=== PATIENT | female | born 1980 | race Caucasian/White ===

== ENCOUNTER 2017-08-03 17:49 | Emergency (ER) | payer BC ==
--- NOTE | 2017-08-03 18:20 | EDM.PDOC ---
ED HPI GENERAL MEDICAL PROBLEM - General Chief Complaint: General Stated Complaint: back injury Time Seen by Provider: 08/03/17 18:14 Source of Information: Reports: Patient History Limitations: Reports: No Limitations - History of Present Illness INITIAL COMMENTS - FREE TEXT/NARRATIVE: 37 yr female presents with low back pain on the right side. States she was holding a hockey bag at the arena and her back gave out and this pain started. States she thought it was her kidneys, but this pain is low back pain. States better with sitting and worse with standing. States hysterectomy in 2015 and no chance for any x-ray, also had appendectomy. Pain is better with sitting straight up right. States pain is a 6 with sitting and 9 with standing. Onset: Today Onset Date: 08/03/17 Location: Reports: Back Associated Symptoms: Reports: Other (leg pain) - Related Data Allergies Allergy/AdvReac Type Severity Reaction Status Date / Time No Known Allergies Allergy Verified 08/03/17 18:05 Past Medical History HEENT History: Reports: None Cardiovascular History: Reports: None Respiratory History: Reports: None Gastrointestinal History: Reports: None Genitourinary History: Reports: None Other OB/BYN History: parity: 3, gravity: 3, vaginal deliveries Neurological History: Reports: None Endocrine/Metabolic History: Reports: None Oncologic (Cancer) History: Reports: None - Past Surgical History Head Surgeries/Procedures: Reports: None Other Musculoskeletal Surgeries/Procedures:: no further complaints of musculoskeletal concerns, no RA, no scoliosis or LLD, no known bone density concerns ED ROS GENERAL - Review of Systems Review Of Systems: See Below Constitutional: Reports: No Symptoms HEENT: Reports: No Symptoms Respiratory: Reports: No Symptoms Cardiovascular: Reports: No Symptoms Musculoskeletal: Reports: Back Pain, Leg Pain Skin: Reports: No Symptoms Neurological: Reports: No Symptoms ED EXAM, GENERAL - Physical Exam Exam: See Below Exam Limited By: No Limitations General Appearance: Alert, No Apparent Distress Nose: Normal Inspection Throat/Mouth: Normal Inspection Head: Atraumatic Neck: Normal Inspection Respiratory/Chest: No Respiratory Distress Back Exam: Muscle Spasm, Paraspinal Tenderness Extremities: Normal Inspection, Normal Range of Motion Neurological: Alert, Oriented, Normal Cognition Psychiatric: Normal Affect Skin Exam: Warm, Dry, Normal Color Course - Vital Signs Last Recorded V/S: Last Vital Signs Temp 98.7 F 08/03/17 18:20 Pulse 144 H 08/03/17 18:20 Resp 12 08/03/17 18:20 BP 144/91 H 08/03/17 18:20 Pulse Ox 99 08/03/17 18:20 - Orders/Labs/Meds Orders: Active Orders 24 hr Category Date Time Status Lumbar Spine 2 or 3V [CR] Stat Exams 08/03/17 18:19 Taken - Re-Assessments/Exams Free Text/Narrative Re-Assessment/Exam: 08/03/17 19:10 Review of x-ray, noted no acute fracture, no lesions noted. Radiology to read and results will be reviewed. Recommend ice or heat to area, may alternated Ibuprofen and Tylenol for pain. Flexeril 10 mg PO tid as needed for muscle spasm. Flat on back tonight with use of ice/heat or position of comfort. If pain persists, should be off work tomorrow and let back rest. Pt to contact provider if need refill on Flexeril or if pain worsens or unrelieved with Ibuprofen. Pt discharged to self care. Departure - Departure Time of Disposition: 19:00 Disposition: Home, Self-Care 01 Condition: Good Clinical Impression: Paraspinal muscle spasm - Discharge Information Instructions: Back Pain, Adult, [id number] Referrals: PCP,None [Primary Care Provider] - Forms: ED Department Discharge Additional Instructions: Take alternate tylenol (650mg) and ibproufen (800mg) every four hours as needed for pain. Stretch back as tolerated. Use flexeril 1 tablet 10mg up to 3 times a day as needed for pain. Alternate ice and heat for 15 minutes every 3 to 4 hours. - My Orders Last 24 Hours: My Active Orders 08/03/17 18:19 Lumbar Spine 2 or 3V [CR] Stat - Assessment/Plan Last 24 Hours: My Active Orders 08/03/17 18:19 Lumbar Spine 2 or 3V [CR] Stat
[2017-08-03] MEDS ORDERED: Cyclobenzaprine 10 MG Tab ONE (18:45)
--- NOTE | 2017-08-04 11:03 | CR ---
DATE OF SERVICE: 08/03/17 CLINICAL DATA: back pain LUMBAR SPINE: There is mild left convexity rotoscoliosis of the mid and lower lumbar spine. The vertebral bodies are of average height. No acute fracture or dislocation. There are small disc margin spurs at multiple levels. The disc spaces are relatively intact. No acute abnormalities. If the patient's symptoms persist, a MRI scan should be considered. [id number] MTDD
== END 2017-08-03 19:02 | disposition home or self-care (01) ==
LOC: LB.ED 17:49
DX: M62.830 Muscle spasm of back (principal)
CPT/HCPCS: 72100; 99283; A9270

== ENCOUNTER 2023-09-30 16:26 | Emergency (ER) | payer BC ==
[2023-09-30] MEDS ORDERED: Ketorolac 30 MG/ML SDV IVPUSH ONE (16:32)
[2023-09-30 16:44] LABS: BASOPHILS ABSOLUTE AUTO 0.02 K/uL (0.02-0.10); BASOPHILS PERCENT AUTO 0.3 % (0.0-0.5); EOSINOPHILS ABSOLUTE AUTO 0.15 K/uL (0.04-0.40); EOSINOPHILS PERCENT AUTO 2.4 % (1.0-5.0); HEMATOCRIT 35.5 % (37.0-47.0); LYMPHOCYTES ABSOLUTE AUTO 2.18 K/uL (1.50-4.00); LYMPHOCYTES PERCENT AUTO 34.2 % (20.0-40.0); MEAN CORPUSCULAR HGB CONC 36.6 g/dL (31.0-35.0); MEAN CORPUSCULAR VOLUME 76 fL (76-96); MEAN PLATELET VOLUME 9.1 fL (6.0-10.0); NEUTROPHILS ABSOLUTE AUTO 3.33 K/uL (2.00-7.50); NEUTROPHILS PERCENT AUTO 52.1 % (45.0-70.0); PLATELET COUNT,PLT 318 K/uL (150-500); RED BLOOD CELL COUNT 4.65 M/uL (3.80-5.80); RED CELL DISTRIBUTION WIDTH 13.6 % (11.0-16.0); WHITE BLOOD CELL COUNT,WBC 6.4 K/uL (4.0-11.0)
[2023-09-30] MEDS ORDERED: Ketorolac 10 MG Tab ONE ×2 (17:00→17:26)
[2023-09-30 17:09] LABS: A/G RATIO 0.9 (0.8-2.0); ALANINE AMINOTRANSFERASE,ALT 50 U/L (12-78); ALBUMIN 3.7 g/dL (3.4-5.0); ALKALINE PHOSPHATASE 94 U/L (46-116); ANION GAP 14.9 mmol/L (5.0-15.0); ASPARTATE AMNIOTRANSFERASE,AST 22 U/L (15-37); BILIRUBIN TOTAL 0.5 mg/dL (0.0-1.0); BLOOD UREA NITROGEN,BUN 17 mg/dL (8-26); CALCIUM 9.1 mg/dL (8.5-10.1); CARBON DIOXIDE,CO2 25.9 mmol/L (21.0-32.0); CHLORIDE,CL 103 mmol/L (98-107); CREATININE 0.81 mg/dL (0.55-1.02); ESTIMATED GFR 93 mL/min (>60); GLUCOSE RANDOM 95 mg/dL (74-100); POTASSIUM,K 3.8 mmol/L (3.5-5.1); PROTEIN TOTAL,TP 7.7 g/dL (6.4-8.2); SODIUM,NA 140 mmol/L (136-145)
[2023-09-30] MEDS ORDERED: Sodium Chloride 0.9% 10 ML Syringe FLUSH PRN (17:15)
== END 2023-09-30 17:17 | disposition home or self-care (01) ==
LOC: LB.ED 16:26
DX: R09.1 Pleurisy (principal)
CPT/HCPCS: 36415; 71045; 80053; 85025; 85379; 93005; 93010; 96374; 99283; 99285; A9270; J1885

== ENCOUNTER 2024-11-04 10:38 | Emergency (ER) | payer BC ==
[2024-11-04] MEDS: oxyCODONE 5 MG Tab PO ONE (11:40)
[2024-11-04] MEDS ORDERED: Acetaminophen/HYDROcodone 325-5 MG Tab ONE (12:00)
== END 2024-11-04 12:08 | disposition home or self-care (01) ==
LOC: LB.ED 10:38
DX: L73.2 Hidradenitis suppurativa (principal); K21.9 Gastro-esophageal reflux disease without esophagitis; F17.210 Nicotine dependence, cigarettes, uncomplicated; Z90.49 Acquired absence of other specified parts of digestive tract; Z90.710 Acquired absence of both cervix and uterus
CPT/HCPCS: 10060; 99283; 99283-25; A9270-GY